=== PATIENT | female | born 1940 | race Caucasian/White ===

== ENCOUNTER 2017-02-03 09:05 | Emergency (ER) | payer MEDICARE, BC, MEDICAID ==
[~2017-02-03] VITALS: Ht 152.4 cm; Wt 68.2 kg
[~2017-02-03 09:05] MED LIST: CARV3.123 PO; FURO20TA4 PO; HYDR-565 PO; LEVO100T PO; MULT1TAB74 PO; PANT-47 PO; PREG75CA30 PO; SIMV20TA5 PO; TIZA2TAB4 PO; TRAM50TA2 PO
[2017-02-03] MEDS ORDERED: HYDROcodone/acetaminophen 10/325mg tab PO ONE (10:10)
[2017-02-03] MEDS ORDERED: HYDR-565 PO (11:48)
[2017-02-03 12:48] VITALS: BP 122/62
== END 2017-02-03 12:49 | disposition home or self-care (01) ==
LOC: ER 09:06
DX: S52.92XA Unspecified fracture of left forearm, initial encounter for closed fracture (principal); S52.612A Displaced fracture of left ulna styloid process, initial encounter for closed fracture; Z86.73 Personal history of transient ischemic attack (TIA), and cerebral infarction without residual deficits; Z88.1 Allergy status to other antibiotic agents; Z91.09 Other allergy status, other than to drugs and biological substances; Z88.8 Allergy status to other drugs, medicaments and biological substances; Z79.899 Other long term (current) drug therapy; W18.11XA Fall from or off toilet without subsequent striking against object, initial encounter; Y93.89 Activity, other specified; Y92.89 Other specified places as the place of occurrence of the external cause; Y99.8 Other external cause status
CPT/HCPCS: 29125; 73030; 73090; 99284; A4565; A6449

== ENCOUNTER 2018-01-07 07:30 | Inpatient (IN) | payer MEDICARE, BC, MEDICAID ==
[2017-12-25 11:07] LABS: BASOPHILS % (AUTO) 0.4 % (0-1); EOSINOPHILS # (AUTO) 0.3 X10'3 (0-0.9); EOSINOPHILS % (AUTO) 4.4 % (0-6); LYMPHOCYTES # (AUTO) 1.3 X10'3 (1.1-4.8); LYMPHOCYTES % (AUTO) 19.7 % (21-51); MEAN CORPUSCULAR HEMOGLOBIN 30.3 PG (27.0-31.0); MEAN CORPUSCULAR HGB CONC 32.8 % (33.0-36.5); MEAN CORPUSCULAR VOLUME 92.3 FL (78-98); MEAN PLATELET VOLUME 9.9 FL (7.4-10.4); MONOCYTES # (AUTO) 0.4 X10'3 (0-0.9); MONOCYTES % (AUTO) 5.9 % (2-12); NEUTROPHILS # (AUTO) 4.6 X10'3 (1.8-7.7); NEUTROPHILS % (AUTO) 69.6 % (42-75); PRE OP HEMATOCRIT 42.5 % (35.0-45.0); PRE OP PLATELET COUNT 214 X10'3 (140-440); RED BLOOD COUNT 4.61 X10'6 (4.20-5.60); RED CELL DISTRIBUTION WIDTH 13.5 % (11.5-14.5)
[2017-12-25 11:20] LABS: PRE OP PROTIME 10.3 SECONDS (9.0-12.0)
[2017-12-25 11:31] LABS: ALBUMIN 3.6 G/DL (3.4-5.0); ALBUMIN/GLOBULIN RATIO 1.1 (1.1-1.5); ALKALINE PHOSPHATASE 70 IU/L (46-116); BLOOD UREA NITROGEN 17 MG/DL (7-18); BUN/CREATININE RATIO 21.8 (6.6-38.0); CALCIUM 9.4 MG/DL (8.5-10.1); CHLORIDE 108 MMOL/L (99-107); CREATININE 0.78 MG/DL (0.40-0.90); PRE OP ALT 15 U/L (30-65); PRE OP ANION GAP 7 (8-16); PRE OP AST 13 U/L (10-37); PRE OP BILIRUB, TOTAL 0.9 MG/DL (0.0-1.0); PRE OP GLUCOSE 108 MG/DL (70-104); PRE OP POTASSIUM 4.1 MMOL/L (3.4-5.1); PRE OP SODIUM 143 MMOL/L (135-145); TOTAL CARBON DIOXIDE 27.7 MMOL/L (24-32); TOTAL PROTEIN 6.9 G/DL (6.4-8.2); eGFR 72 ML/MIN
[2018-01-06 18:00] VITALS: BP 107/43
[2018-01-07] VITALS (17 sets, daily range): BP systolic 90–119; BP diastolic 43–75
[~2018-01-07] VITALS: Ht 157.5 cm; Wt 80.8 kg
[~2018-01-07 07:30] MED LIST changes: +DOCUMENT DATE & TIME OF BETA-BLOCKER PO ONE; -FURO20TA4 PO; +HYDR-3968 PO; -HYDR-565 PO; -MULT1TAB74 PO; -TRAM50TA2 PO; +cefazolin/dext.iso 2gm/100 ML IV ONE; +famotidine 20mg tablet PO ONE; +ringers solution, lacted 1,000 ML IV SCH; +tranexamic acid inj. 1,000 MG in normal saline 100ml IV soln 90 ML IV ONE; +vancomycin inj 1,500 MG in normal saline 300ml IV soln IV ONE
[2018-01-07] MEDS ORDERED: LIDOcaine 1% (10mg/ml) 2ml vial ONE (08:40)
[2018-01-07] MEDS ORDERED: ROPIVAcaine 0.5% (5mg/ml) 30ml vial ONE (10:06)
[2018-01-07] MEDS ORDERED: tetracaine 1% (10mg/ml) pres. free inj. ONE (10:07)
[2018-01-07] MEDS ORDERED: morphine /PF 1mg/ml 10ml inj. ONE (10:21)
[2018-01-07] MEDS ORDERED: MIDAZolam 1mg/ml 10ml vial ONE (10:21)
[2018-01-07] MEDS ORDERED: phenylephrine 10mg/ml inj. ONE (10:44)
[2018-01-07] MEDS ORDERED: albumin (Human) 5% 250ml 250 ML IV ONE (10:49)
[2018-01-07] MEDS ORDERED: ringers solution, lacted 1,000 ML IV SCH (11:27)
[2018-01-07] MEDS ORDERED: morphine 4 MG/ML inj SYRINge IV PRN ×2 (11:30)
[2018-01-07] MEDS ORDERED: hydrALAZINE 20mg/ml inj. IV PRN (11:30)
[2018-01-07] MEDS ORDERED: ondansetron/PF 4mg/2ml inj IV PRN ×3 (11:30→14:20)
[2018-01-07] MEDS ORDERED: fentaNYL/PF 50MCG/1 ML 2ML syringe IV PRN ×2 (11:30)
[2018-01-07] MEDS ORDERED: labetalol 20mg/4ml (5mg/ml) syringe IV PRN (11:30)
[2018-01-07] MEDS ORDERED: diphenhydrAMINE 50 mg/ml inj IV PRN (13:00)
[2018-01-07] MEDS ORDERED: diphenhydrAMINE 25mg capsule PO PRN ×2 (14:20)
[2018-01-07] MEDS ORDERED: HYDROcodone/acetaminophen 10/325mg tab PO PRN (14:20)
[2018-01-07] MEDS ORDERED: HYDROmorphone 1 mg/ml syringe IV PRN (14:20)
[2018-01-07] MEDS ORDERED: bisacodyl 10mg suppository rectal RC PRN (14:20)
[2018-01-07] MEDS ORDERED: magnesium hydroxide 30ml (MOM) UD suspension PO PRN (14:20)
[2018-01-07] MEDS: acetaminophen 325mg tablet PO PRN (16:07)
[2018-01-07] MEDS: ceFAZolin 1GM/D5W- ADD-VANTAGE 50 ML IV SCH (16:07)
[2018-01-07] MEDS: potassium Cl 20mEq in NS 1,000 ML IV SCH (16:07)
[2018-01-07] MEDS: aspirin 81mg tab.chew PO SCH (18:01)
[2018-01-07] MEDS: carVEDilol 3.125mg tablet PO SCH (20:00)
[2018-01-07] MEDS ORDERED: vancomycin/NS 1 GM ADD-VANTAGE 250 ML IV SCH (20:00)
[2018-01-07] MEDS: pregabalin 75mg capsule PO SCH (20:24)
[2018-01-07] MEDS: cyclobenzaprine 10mg tablet PO SCH (20:24)
[2018-01-07] MEDS: sennosides 8.6mg tablet PO SCH (20:24)
[2018-01-08] MEDS: ceFAZolin 1GM/D5W- ADD-VANTAGE 50 ML IV SCH (00:25)
[2018-01-08] MEDS: HYDROcodone/acetaminophen 10/325mg tab PO PRN ×5 (00:26→23:05)
[2018-01-08 02:00] VITALS: BP 105/49
[2018-01-08] MEDS: potassium Cl 20mEq in NS 1,000 ML IV SCH ×2 (03:41→13:05)
[2018-01-08 06:00] VITALS: BP 102/48
[2018-01-08 06:19] LABS: BASOPHILS % (AUTO) 0 % (0-1); EOSINOPHILS % (AUTO) 0.4 % (0-6); HEMATOCRIT 30.9 % (35.0-45.0); HEMOGLOBIN 10.3 g/dl (12.0-16.0); LYMPHOCYTES # (AUTO) 0.8 X10'3 (1.1-4.8); LYMPHOCYTES % (AUTO) 10.8 % (21-51); MEAN CORPUSCULAR HEMOGLOBIN 30.7 PG (27.0-31.0); MEAN CORPUSCULAR HGB CONC 33.3 % (33.0-36.5); MEAN CORPUSCULAR VOLUME 92.2 FL (78-98); MEAN PLATELET VOLUME 10.2 FL (7.4-10.4); MONOCYTES # (AUTO) 0.6 X10'3 (0-0.9); MONOCYTES % (AUTO) 8.7 % (2-12); NEUTROPHILS # (AUTO) 5.9 X10'3 (1.8-7.7); NEUTROPHILS % (AUTO) 80.1 % (42-75); PLATELET COUNT 102 X10'3 (140-440); RED BLOOD COUNT 3.35 X10'6 (4.20-5.60); RED CELL DISTRIBUTION WIDTH 13.3 % (11.5-14.5); WHITE BLOOD COUNT 7.3 X10'3 (4.5-11.0)
[2018-01-08 06:27] LABS: ALANINE AMINOTRANSFERASE 14 U/L (12-78); ALBUMIN 2.9 G/DL (3.4-5.0); ALBUMIN/GLOBULIN RATIO 1.2 (1.1-1.5); ALKALINE PHOSPHATASE 37 IU/L (46-116); ANION GAP 8 (8-16); ASPARTATE AMINO TRANSFERASE 11 U/L (10-37); BILIRUBIN,TOTAL 0.8 MG/DL (0.1-1.0); BLOOD UREA NITROGEN 14 MG/DL (7-18); BUN/CREATININE RATIO 20.6 (6.6-38.0); CALCIUM 8.6 MG/DL (8.5-10.1); CHLORIDE 110 MMOL/L (99-107); CREATININE 0.68 MG/DL (0.40-0.90); GLUCOSE 130 MG/DL (70-104); SODIUM 145 MMOL/L (135-145); TOTAL CARBON DIOXIDE 26.8 MMOL/L (24-32); TOTAL PROTEIN 5.3 G/DL (6.4-8.2); eGFR 84 ML/MIN
[2018-01-08] MEDS: aspirin 81mg tab.chew PO SCH ×2 (07:48→17:35)
[2018-01-08] MEDS: pantoprazole 40mg Tablet.DR PO SCH (07:49)
[2018-01-08] MEDS: pregabalin 75mg capsule PO SCH ×3 (07:49→22:45)
[2018-01-08 07:50] VITALS: BP 98/38
[2018-01-08] MEDS: levoTHYROXINE 100mcg tablet PO SCH (07:50)
[2018-01-08] MEDS: carVEDilol 3.125mg tablet PO SCH ×2 (08:00→20:00)
[2018-01-08 10:00] VITALS: BP 95/45
[2018-01-08 18:00] VITALS: BP 112/65
[2018-01-08 22:45] VITALS: BP 119/54
[2018-01-08] MEDS: cyclobenzaprine 10mg tablet PO SCH (22:45)
[2018-01-08] MEDS: sennosides 8.6mg tablet PO SCH (22:45)
[2018-01-08] MEDS: acetaminophen 325mg tablet PO PRN (22:45)
[2018-01-09] MEDS: HYDROcodone/acetaminophen 10/325mg tab PO PRN (05:18)
[2018-01-09 06:07] LABS: BASOPHILS % (AUTO) 0.2 % (0-1); EOSINOPHILS # (AUTO) 0.4 X10'3 (0-0.9); EOSINOPHILS % (AUTO) 5.2 % (0-6); HEMOGLOBIN 11.4 g/dl (12.0-16.0); LYMPHOCYTES # (AUTO) 1.8 X10'3 (1.1-4.8); MEAN CORPUSCULAR HEMOGLOBIN 31.5 PG (27.0-31.0); MEAN CORPUSCULAR HGB CONC 33.6 % (33.0-36.5); MEAN CORPUSCULAR VOLUME 93.6 FL (78-98); MEAN PLATELET VOLUME 9.4 FL (7.4-10.4); MONOCYTES # (AUTO) 0.8 X10'3 (0-0.9); MONOCYTES % (AUTO) 9.9 % (2-12); NEUTROPHILS # (AUTO) 5.1 X10'3 (1.8-7.7); NEUTROPHILS % (AUTO) 62.7 % (42-75); PLATELET COUNT 131 X10'3 (140-440); RED BLOOD COUNT 3.63 X10'6 (4.20-5.60); RED CELL DISTRIBUTION WIDTH 13.6 % (11.5-14.5); WHITE BLOOD COUNT 8.2 X10'3 (4.5-11.0)
[2018-01-09] MEDS: potassium Cl 20mEq in NS 1,000 ML IV SCH (06:38)
[2018-01-09 06:58] VITALS: BP 128/63
[2018-01-09 07:10] LABS: ANION GAP 10 (8-16); BILIRUBIN,TOTAL 1.2 MG/DL (0.1-1.0); BLOOD UREA NITROGEN 7 MG/DL (7-18); CALCIUM 9.2 MG/DL (8.5-10.1); CHLORIDE 108 MMOL/L (99-107); GLUCOSE 114 MG/DL (70-104); POTASSIUM 3.3 MMOL/L (3.5-5.1); SODIUM 145 MMOL/L (135-145); TOTAL CARBON DIOXIDE 27.5 MMOL/L (24-32); TOTAL PROTEIN 6.2 G/DL (6.4-8.2); eGFR 81 ML/MIN
[2018-01-09 07:11] LABS: ALANINE AMINOTRANSFERASE 14 U/L (12-78); ALBUMIN 2.9 G/DL (3.4-5.0); ALBUMIN/GLOBULIN RATIO 0.9 (1.1-1.5); ALKALINE PHOSPHATASE 51 IU/L (46-116); ASPARTATE AMINO TRANSFERASE 13 U/L (10-37)
[2018-01-09] MEDS ORDERED: oxyCODONE/APAP 5-325mg tablet PO PRN (07:30)
[2018-01-09] MEDS: levoTHYROXINE 100mcg tablet PO SCH (08:02)
[2018-01-09] MEDS: pregabalin 75mg capsule PO SCH ×3 (08:02→20:57)
[2018-01-09] MEDS: carVEDilol 3.125mg tablet PO SCH ×2 (08:02→20:54)
[2018-01-09] MEDS: oxyCODONE/APAP 10/325mg tablet PO PRN ×3 (08:03→17:37)
[2018-01-09] MEDS: pantoprazole 40mg Tablet.DR PO SCH (08:04)
[2018-01-09] MEDS: celeCOXIB 100mg capsule PO SCH (08:04)
[2018-01-09] MEDS: aspirin 81mg tab.chew PO SCH ×2 (08:04→17:37)
[2018-01-09 18:00] VITALS: BP 137/70
[2018-01-09] MEDS: cyclobenzaprine 10mg tablet PO SCH (20:55)
[2018-01-09] MEDS: sennosides 8.6mg tablet PO SCH (20:57)
[2018-01-09 22:00] VITALS: BP 140/56
[2018-01-10] MEDS: oxyCODONE/APAP 10/325mg tablet PO PRN ×5 (03:51→21:15)
[2018-01-10 06:00] VITALS: BP 141/67
[2018-01-10 07:29] LABS: BASOPHILS % (AUTO) 0.3 % (0-1); EOSINOPHILS # (AUTO) 0.3 X10'3 (0-0.9); EOSINOPHILS % (AUTO) 4.2 % (0-6); HEMATOCRIT 30.9 % (35.0-45.0); HEMOGLOBIN 10.2 g/dl (12.0-16.0); LYMPHOCYTES # (AUTO) 0.9 X10'3 (1.1-4.8); LYMPHOCYTES % (AUTO) 11.7 % (21-51); MEAN CORPUSCULAR HEMOGLOBIN 30.9 PG (27.0-31.0); MEAN CORPUSCULAR HGB CONC 33.1 % (33.0-36.5); MEAN CORPUSCULAR VOLUME 93.2 FL (78-98); MEAN PLATELET VOLUME 9.7 FL (7.4-10.4); MONOCYTES # (AUTO) 0.6 X10'3 (0-0.9); MONOCYTES % (AUTO) 7.4 % (2-12); NEUTROPHILS # (AUTO) 5.8 X10'3 (1.8-7.7); NEUTROPHILS % (AUTO) 76.4 % (42-75); PLATELET COUNT 143 X10'3 (140-440); RED BLOOD COUNT 3.31 X10'6 (4.20-5.60); RED CELL DISTRIBUTION WIDTH 13.6 % (11.5-14.5); WHITE BLOOD COUNT 7.6 X10'3 (4.5-11.0)
[2018-01-10] MEDS: pregabalin 75mg capsule PO SCH ×3 (08:26→19:25)
[2018-01-10] MEDS: celeCOXIB 100mg capsule PO SCH (08:26)
[2018-01-10] MEDS: levoTHYROXINE 100mcg tablet PO SCH (08:26)
[2018-01-10] MEDS: aspirin 81mg tab.chew PO SCH ×2 (08:27→17:13)
[2018-01-10] MEDS: carVEDilol 3.125mg tablet PO SCH ×2 (08:27→19:25)
[2018-01-10] MEDS: pantoprazole 40mg Tablet.DR PO SCH (08:27)
[2018-01-10 09:20] LABS: ALANINE AMINOTRANSFERASE 13 U/L (12-78); ALBUMIN 2.5 G/DL (3.4-5.0); ALBUMIN/GLOBULIN RATIO 0.8 (1.1-1.5); ALKALINE PHOSPHATASE 49 IU/L (46-116); ANION GAP 8 (8-16); ASPARTATE AMINO TRANSFERASE 11 U/L (10-37); BILIRUBIN,TOTAL 1.3 MG/DL (0.1-1.0); BLOOD UREA NITROGEN 8 MG/DL (7-18); BUN/CREATININE RATIO 12.7 (6.6-38.0); CALCIUM 8.5 MG/DL (8.5-10.1); CHLORIDE 107 MMOL/L (99-107); CREATININE 0.63 MG/DL (0.40-0.90); GLUCOSE 111 MG/DL (70-104); POTASSIUM 3.3 MMOL/L (3.5-5.1); SODIUM 143 MMOL/L (135-145); TOTAL CARBON DIOXIDE 27.8 MMOL/L (24-32); TOTAL PROTEIN 5.7 G/DL (6.4-8.2); eGFR > 90 ML/MIN
[2018-01-10] MEDS ORDERED: magnesium Cl slow-release 64mg tablet PO PRN (09:40)
[2018-01-10] MEDS ORDERED: potassium Cl 40MEQ/NS 500ml 500 ML IV PRN ×2 (09:40)
[2018-01-10] MEDS ORDERED: magnesium 4gm in 100ml NS 100 ML IV PRN (09:40)
[2018-01-10] MEDS ORDERED: potassium Cl 20 mEq SR tablet PO PRN (09:40)
[2018-01-10] MEDS: potassium Cl 20 mEq SR tablet PO PRN ×3 (10:45→21:16)
[2018-01-10 10:58] VITALS: BP 99/55
[2018-01-10] MEDS ORDERED: ASPI-1265 PO (11:40)
[2018-01-10] MEDS ORDERED: PER5325T PO (11:40)
[2018-01-10 18:00] VITALS: BP 116/68
[2018-01-10 19:24] VITALS: BP 121/67
[2018-01-10] MEDS: cyclobenzaprine 10mg tablet PO SCH (19:26)
[2018-01-10] MEDS: sennosides 8.6mg tablet PO SCH (19:26)
[2018-01-10 22:00] VITALS: BP 109/52
[2018-01-11] MEDS: oxyCODONE/APAP 10/325mg tablet PO PRN ×2 (04:09→11:01)
[2018-01-11 06:00] VITALS: BP 108/63
[2018-01-11] MEDS: aspirin 81mg tab.chew PO SCH (07:29)
[2018-01-11] MEDS: celeCOXIB 100mg capsule PO SCH (07:29)
[2018-01-11] MEDS: levoTHYROXINE 100mcg tablet PO SCH (07:29)
[2018-01-11] MEDS: pregabalin 75mg capsule PO SCH (07:30)
[2018-01-11] MEDS: pantoprazole 40mg Tablet.DR PO SCH (07:30)
[2018-01-11] MEDS: carVEDilol 3.125mg tablet PO SCH (07:31)
[2018-01-11 09:06] LABS: MAGNESIUM 1.8 MG/DL (1.5-2.4)
[2018-01-11 10:00] VITALS: BP 105/53
[2018-01-14] MEDS ORDERED: CYCL1DRO (14:04)
== END 2018-01-11 11:10 | disposition home or self-care (01) | DRG 470 ==
LOC: PAS IN 08:09 → EDSTATUS 11:00 → ORTHO 4S 14:40
PROVIDERS: ADMIT Orthopaedic Surgery; ATTEND Orthopaedic Surgery
PROC: 3E0T3BZ Introduction of Anesthetic Agent into Peripheral Nerves and Plexi, Percutaneous Approach (ICD-10-PCS; 2018-01-07)
PROC: 0SRD0J9 Replacement of Left Knee Joint with Synthetic Substitute, Cemented, Open Approach (ICD-10-PCS; principal; 2018-01-07 10:23)
DX: M17.12 Unilateral primary osteoarthritis, left knee (principal); D62 Acute posthemorrhagic anemia; E03.9 Hypothyroidism, unspecified; I12.9 Hypertensive chronic kidney disease with stage 1 through stage 4 chronic kidney disease, or unspecified chronic kidney disease; E78.49 Other hyperlipidemia; N18.2 Chronic kidney disease, stage 2 (mild); E87.6 Hypokalemia; K21.9 Gastro-esophageal reflux disease without esophagitis; G89.29 Other chronic pain; I25.10 Atherosclerotic heart disease of native coronary artery without angina pectoris; M54.9 Dorsalgia, unspecified; E66.9 Obesity, unspecified; Z79.899 Other long term (current) drug therapy; Z91.048 Other nonmedicinal substance allergy status; Z68.32 Body mass index [BMI] 32.0-32.9, adult
CPT/HCPCS: 36415; 80053; 83735; 84132; 84443; 85025; 85610; 85730; 86885; 86900; 86901; 86920; 87070; 93005; 97110; 97116; 97161; 97530; A6454; A7000; C1713; C1758; C1776; G0378; J0690; J1200; J2250; J2274; J2370; J2405; J2795; J3370; J3490; J7030; J7120; P9045; Q0163

== ENCOUNTER 2018-05-01 11:33 | Inpatient (IN) | payer MEDICARE, BC, MEDICAID | END 2018-05-06 14:00 | LOC: ORTHO 4S 11:33 | PROC: 0SRB0J9 Replacement of Left Hip Joint with Synthetic Substitute, Cemented, Open Approach (ICD-10-PCS; principal; 2018-05-02 14:02) | DX: S72.002A Fracture of unspecified part of neck of left femur, initial encounter for closed fracture (principal); Z96.652 Presence of left artificial knee joint; I10 Essential (primary) hypertension ==

== ENCOUNTER 2020-07-06 10:26 | Emergency (ER) | payer MEDICARE, BC, MEDICAID ==
[~2020-07-06] VITALS: Ht 167.6 cm; Wt 79.5 kg
[~2020-07-06 10:26] MED LIST changes: +ASPI-1265 PO; +CYCL1DRO; -DOCUMENT DATE & TIME OF BETA-BLOCKER PO ONE; -HYDR-3968 PO; +PER5325T PO; -SIMV20TA5 PO; +TIZA-189 PO; -TIZA2TAB4 PO; -cefazolin/dext.iso 2gm/100 ML IV ONE; -famotidine 20mg tablet PO ONE; -ringers solution, lacted 1,000 ML IV SCH; -tranexamic acid inj. 1,000 MG in normal saline 100ml IV soln 90 ML IV ONE; -vancomycin inj 1,500 MG in normal saline 300ml IV soln IV ONE
--- NOTE | 2020-07-06 11:01 | NUR ---
PER PATIENT REQUEST PLACED ON 2 LITERS O2 WHICH SHE WEARS AT HOME SPO2 ON RA 95%
[2020-07-06] MEDS ORDERED: HYDROcodone/acetaminophen 5mg/325mg tablet PO ONE (11:50)
--- NOTE | 2020-07-06 13:33 | NUR ---
NO ANWER AT SON ANGÉLICA'S PHONE
--- NOTE | 2020-07-06 13:33 | NUR ---
PCALLED SON ANGÉLICA [phone]
[2020-07-06 13:35] VITALS: BP 141/69
--- NOTE | 2020-07-06 13:35 | NUR ---
CALLED HOME PHONE [phone] , ANGÉLICA WILL PPICK HER UP
--- NOTE | 2020-07-06 14:31 | NUR ---
PICC RN UNABLE TO PLACE LINE, BALAJI GOMEZ INFORMED NO PICC NO MIDLINE PLACED AFTER MULTIPLE ATTEMPTS BY PICC RN REGAN
== END 2020-07-06 13:02 | disposition home or self-care (01) ==
LOC: ER 10:27
DX: S06.9X9A Unspecified intracranial injury with loss of consciousness of unspecified duration, initial encounter (principal); S00.11XA Contusion of right eyelid and periocular area, initial encounter; I50.9 Heart failure, unspecified; M19.90 Unspecified osteoarthritis, unspecified site; M81.0 Age-related osteoporosis without current pathological fracture; Z79.82 Long term (current) use of aspirin; Z79.899 Other long term (current) drug therapy; Z88.1 Allergy status to other antibiotic agents; Z88.8 Allergy status to other drugs, medicaments and biological substances; Z95.5 Presence of coronary angioplasty implant and graft; Z91.048 Other nonmedicinal substance allergy status; Z90.49 Acquired absence of other specified parts of digestive tract; Z87.81 Personal history of (healed) traumatic fracture; Z90.89 Acquired absence of other organs; Z90.710 Acquired absence of both cervix and uterus; W19.XXXA Unspecified fall, initial encounter; Z91.81 History of falling; Y93.89 Activity, other specified; Y92.89 Other specified places as the place of occurrence of the external cause; Y99.8 Other external cause status
CPT/HCPCS: 70450; 70486; 72125; 99285